=== PATIENT | female | born 1985 | race Asian ===

== ENCOUNTER 2021-06-06 15:05 | Emergency (ER) | payer BC ==
[2021-06-06] MEDS ORDERED: CEPHALEXIN MONOHYDRATE 500 MG CAPSULE (UD) PO ONE (15:12)
[2021-06-06 15:19] VITALS: BP 101/64; PULSE 83; TEMP 97.8; BMI 22.3
[2021-06-06] MEDS ORDERED: CEPHALEXIN MONOHYDRATE 500 MG CAPSULE (UD) ONE (16:06)
== END 2021-06-06 16:10 | disposition home or self-care (01) ==
LOC: FER 15:05
DX: S61.216A Laceration without foreign body of right little finger without damage to nail, initial encounter (principal); W26.0XXA Contact with knife, initial encounter; Y92.9 Unspecified place or not applicable
CPT/HCPCS: 73140-TC-RT-FY; 99284-25

== ENCOUNTER 2021-06-11 14:42 | Emergency (ER) | payer BC ==
[2021-06-11 14:53] VITALS: BP 95/58; PULSE 74; TEMP 99; BMI 21.4
== END 2021-06-11 15:21 | disposition home or self-care (01) ==
LOC: FER 14:42
DX: Z48.02 Encounter for removal of sutures (principal)
CPT/HCPCS: 99281-25

== ENCOUNTER 2021-06-16 11:12 | Emergency (ER) | payer BC ==
[2021-06-16 11:29] VITALS: BP 98/61; BMI 23.1
== END 2021-06-16 11:38 | disposition home or self-care (01) ==
LOC: FER 11:12
DX: S61.214A Laceration without foreign body of right ring finger without damage to nail, initial encounter (principal); Y99.9 Unspecified external cause status; Z48.02 Encounter for removal of sutures
CPT/HCPCS: 99281-25